=== PATIENT | male | born 1985 | race American Indian/Alaskan Native ===

== ENCOUNTER 2017-06-06 16:33 | Emergency (ER) | payer OTHER, SELFPAY ==
--- NOTE | 2017-06-06 23:52 | Emergency Department Report ---
ED General Adult HPI - General Chief complaint: Chest Pain Stated complaint: CHEST/BACK PAIN Time Seen by Provider: 06/06/17 23:35 Source: patient, family Mode of arrival: Ambulatory Limitations: No Limitations - History of Present Illness Initial comments: Patient reports chest pain. He said he possibly have left rib area that injured because a friend who is a massage therapist popped his back. This has been about 8-9 months ago and he still having pain he is having chest pain. Skin through his back. He said he was seen at [facility] last week for toothache and is prescribed an antibiotic. Pain to left chest. Since her left back is 8 out of 10 and aching. Pain is worse with movement and when he takes a deep breath. Denies any history of blood clots, denies any history of longest this travel for greater than 3 hours recently. Denies any nausea or vomiting. Denies any radiation of pain to his extremities or face. Over-the- counter medication taking without relief. Pain is intermittent. Neither any medical history. Denies any fever or chills. Denies any urinary burning, frequency or urgency. Denies any loss of bladder or bowel control. Denies any weakness to his extremities. MD Complaint: chest pain. Onset/Timin -: month(s) Location: chest, back Radiation: non-radiation Severity scale (0 -10): 8 Quality: aching Improves with: none Worsens with: none Associated Symptoms: chest pain, other (pain. Since her back). denies: confusion, cough, diaphoresis, fever/chills, headaches, loss of appetite, malaise, nausea/vomiting, rash, seizure, shortness of breath, syncope, weakness Treatments Prior to Arrival: NSAID - Related Data Previous Rx's Medication Instructions Recorded Last Taken Type Fluticasone Propionate [Flonase] 2 sprays NS QDAY #1 spray 07/10/13 Unknown Rx HYDROcodone/APAP 5-325 [[place] 1 each PO Q6HR PRN #20 tablet 07/10/13 Unknown Rx 5/325 mg] Loratadine [Claritin] 10 mg PO DAILY #30 tablet 07/10/13 Unknown Rx Sulfamethoxazole/Trimethoprim 1 each PO BID #20 tablet 07/10/13 Unknown Rx [Bactrim Ds] Ibuprofen [Motrin] 600 mg PO Q8H PRN #15 tablet 06/07/17 Unknown Rx Allergies Allergy/AdvReac Type Severity Reaction Status Date / Time peanut Allergy Swelling Verified 07/10/13 16:39 shellfish derived Allergy Swelling Verified 07/10/13 16:39 ED Review of Systems ROS: Stated complaint: CHEST/BACK PAIN Other details as noted in HPI Comment: All other systems reviewed and negative Constitutional: no symptoms reported Respiratory: no symptoms reported Cardiovascular: chest pain, other (pain with inspiration). denies: palpitations , dyspnea on exertion, edema, syncope, paroxysmal nocturnal dyspnea Gastrointestinal: denies: abdominal pain, nausea, vomiting, diarrhea, constipation Genitourinary: denies: dysuria, hematuria Musculoskeletal: back pain. denies: arthralgia, myalgia Skin: denies: rash Neurological: denies: headache, weakness, numbness, paresthesias, confusion, abnormal gait, vertigo ED Past Medical Hx - Past Medical History Previous Medical History?: No - Surgical History Past Surgical History?: No - Family History Family history: no significant - Social History Smoking Status: Current Every Day Smoker Substance Use Type: Prescribed - Medications Home Medications: Home Medications Medication Instructions Recorded Confirmed Last Taken Type Fluticasone Propionate [Flonase] 2 sprays NS QDAY #1 spray 07/10/13 Unknown Rx HYDROcodone/APAP 5-325 [[place] 1 each PO Q6HR PRN #20 tablet 07/10/13 Unknown Rx 5/325 mg] Loratadine [Claritin] 10 mg PO DAILY #30 tablet 07/10/13 Unknown Rx Sulfamethoxazole/Trimethoprim 1 each PO BID #20 tablet 07/10/13 Unknown Rx [Bactrim Ds] Ibuprofen [Motrin] 600 mg PO Q8H PRN #15 tablet 06/07/17 Unknown Rx ED Physical Exam - General Limitations: No Limitations General appearance: alert, in no apparent distress - Head Head exam: Present: atraumatic, normocephalic, normal inspection - Eye Eye exam: Present: normal appearance, PERRL, EOMI Pupils: Present: normal accommodation - ENT ENT exam: Present: normal exam, normal orophraynx, mucous membranes moist - Neck Neck exam: Present: normal inspection, full ROM, other (no C-spine tenderness). Absent: tenderness, lymphadenopathy - Respiratory Respiratory exam: Present: normal lung sounds bilaterally. Absent: respiratory distress, chest wall tenderness - Cardiovascular Cardiovascular Exam: Present: regular rate, normal rhythm, normal heart sounds. Absent: systolic murmur, diastolic murmur, S3, S4 - GI/Abdominal GI/Abdominal exam: Present: soft, normal bowel sounds. Absent: distended, tenderness, guarding, rebound, rigid - Extremities Exam Extremities exam: Present: normal inspection, full ROM, normal capillary refill , other (no clubbing, cyanosis or edema. +2 pulses all extremities). Absent: tenderness, pedal edema, joint swelling, calf tenderness - Back Exam Back exam: Present: normal inspection, full ROM, other (ambulates without any difficulties). Absent: tenderness, CVA tenderness (R), CVA tenderness (L), muscle spasm, paraspinal tenderness, vertebral tenderness, rash noted - Neurological Exam Neurological exam: Present: alert, oriented X3, normal gait, reflexes normal, other (no focal neurological deficit). Absent: motor sensory deficit - Psychiatric Psychiatric exam: Present: normal affect, normal mood - Skin Skin exam: Present: warm, dry, intact, normal color. Absent: rash ED Course Vital Signs 06/06/17 06/07/17 06/07/17 16:37 00:03 01:08 Temperature 98.6 F Pulse Rate 76 76 Respiratory 18 18 18 Rate Blood Pressure 139/78 Blood Pressure 142/88 [Left] O2 Sat by Pulse 98 99 Oximetry - Reevaluation(s) Reevaluation #1: 06/07/17 01:36 She given [place] 5/325 2 tablets by mouth for pain. He voiced relief of his pain ED Medical Decision Making - Lab Data D-dimer is Lab Results 06/07/17 06/07/17 Range/Units 00:31 00:31 D-Dimer < 135 (0-234) ng/mlDDU Troponin T < 0.010 (0.00-0.029) ng/mL - EKG Data -: EKG Interpreted by Me (attending physician) EKG shows normal: sinus rhythm Rate: normal (6 5 bpm) - EKG Data Interpretation: no acute changes - Radiology Data Radiology results: report reviewed Left rib x-ray revealed no acute findings Chest x-ray reveal no acute cardiopulmonary findings - Medical Decision Making ED course: He reports that he isn't having chest pain this patient through his upper back for 8-9 months. Reports that he felt that he was injured while getting a massage. Patient cardiac risk score is 0 and AUGUSTA score is 0. Perc Rule suggest no further studies needed as his score is no risks for DVT. Troponin is normal and d-dimer is normal. I discussed x-ray and lab results the patient and explained diagnosis and treatment plan. Patient was understanding. I discussed with him that if he continues to have chest pain he needs to follow-up with a lawn service worker for further testing. Patient does not have a primary care physician so I'll refer him to [facility]. Patient discharged home with prescription for Motrin Critical care attestation.: If time is entered above; I have spent that time in minutes in the direct care of this critically ill patient, excluding procedure time. ED Disposition Clinical Impression: Atypical chest pain Back pain Qualifiers: Back pain location: thoracic back pain Chronicity: chronic Back pain laterality : bilateral Qualified Code(s): M54.6 - Pain in thoracic spine; G89.29 - Other chronic pain Disposition: - TO HOME OR SELFCARE Is pt being admited?: No Does the pt Need Aspirin: No Condition: Stable Instructions: Chest Pain (ED), Back Pain (ED) Additional Instructions: Please follow up with lawn service worker regarding in chest pain that has been ongoing for 8-9 months. Take Motrin as prescribed for pain. He states this medication with food as it can cause irritation to stomach Prescriptions: Ibuprofen [Motrin] 600 mg PO Q8H PRN #15 tablet PRN Reason: Pain Referrals: [facility] [Outside] - 06/10/17 ABIGAIL MURPHY MD [Staff Physician] - 06/07/17 Forms: Work/School Release Form(ED), Accompanied Note
[2017-06-07 00:04] VITALS: BP 142/88
[2017-06-07] MEDS ORDERED: PERCOCET 5/325 PO ONE (00:21)
--- NOTE | 2017-06-07 01:03 | XRay Report ---
FINAL REPORT EXAM: XR CHEST ROUTINE 2V HISTORY: chest pain TECHNIQUE: 2 views of the chest. PRIORS: None. FINDINGS: The cardiomediastinal silhouette appears normal. The lungs are clear. The bones and soft tissues are unremarkable. IMPRESSION: No evidence of acute cardiopulmonary disease
--- NOTE | 2017-06-07 01:14 | XRay Report ---
FINAL REPORT EXAM: XR RIBS UNILAT 2V LT HISTORY: left rib pain after injury COMPARISON: None available. FINDINGS: Four total images of the left ribs obtained. Left ribs are grossly intact. No step-off deformity or discrete fracture line. Nondisplaced fracture may not be apparent by plain film. IMPRESSION: Left ribs are grossly intact.
== END 2017-06-07 01:48 | disposition home or self-care (01) ==
LOC: ED 16:33
DX: R07.89 Other chest pain (principal); M54.9 Dorsalgia, unspecified; F17.200 Nicotine dependence, unspecified, uncomplicated; Z91.010 Allergy to peanuts; Z91.013 Allergy to seafood
CPT/HCPCS: 36415; 71046; 84484; 85379; 93005; 93010; 99284

== ENCOUNTER 2018-12-25 06:56 | Emergency (ER) | payer SELFPAY ==
--- NOTE | 2018-12-25 08:26 | Emergency Department Report ---
ED ENT HPI - General Chief complaint: Earache Stated complaint: RT SIDE EAR PAIN Time Seen by Provider: 12/25/18 08:20 Source: patient Mode of arrival: Ambulatory Limitations: No Limitations - History of Present Illness Initial comments: 33-year-old -[place] male presents to the emergency room for right ear pain 1 week but getting worse. Patient states that the pain radiates down the right side of neck. Patient does admit to having a moist ear. Patient denies any swimming. Patient denies any fever chills or nausea no vomiting no headach e. Patient denies any past medical history has no known drug allergies and currently takes no medications on a daily basis. MD complaint: ear pain Onset/Timin -: week(s) Location: R ear Severity: moderate Severity scale (0 -10): 5 Quality: aching Consistency: constant Improves with: none Worsens with: none Associated Symptoms: denies: fever, cough, gum swelling, toothache, pain with swallowing, sore throat, tinnitus, hearing loss, discharge from ear, rhinorrhea - Related Data Previous Rx's Medication Instructions Recorded Last Taken Type Fluticasone Propionate [Flonase] 2 sprays NS QDAY #1 spray 07/10/13 Unknown Rx HYDROcodone/APAP 5-325 [[place] 1 each PO Q6HR PRN #20 tablet 07/10/13 Unknown Rx 5/325 mg] Loratadine [Claritin] 10 mg PO DAILY #30 tablet 07/10/13 Unknown Rx Sulfamethoxazole/Trimethoprim 1 each PO BID #20 tablet 07/10/13 Unknown Rx [Bactrim Ds] Ibuprofen [Motrin 600 MG tab] 600 mg PO Q8H PRN #15 tablet 12/25/18 Unknown Rx Neomy/Polymyx B/Hc (Otic) Soln 4 drops AD TID #1 bottle 12/25/18 Unknown Rx [Cortisporin (Otic) Soln] Allergies Allergy/AdvReac Type Severity Reaction Status Date / Time peanut Allergy Swelling Verified 07/10/13 16:39 shellfish derived Allergy Swelling Verified 07/10/13 16:39 ED Dental HPI - General Chief complaint: Earache Stated complaint: RT SIDE EAR PAIN Time Seen by Provider: 12/25/18 08:20 Source: patient Mode of arrival: Ambulatory Limitations: No Limitations - Related Data Previous Rx's Medication Instructions Recorded Last Taken Type Fluticasone Propionate [Flonase] 2 sprays NS QDAY #1 spray 07/10/13 Unknown Rx HYDROcodone/APAP 5-325 [[place] 1 each PO Q6HR PRN #20 tablet 07/10/13 Unknown Rx 5/325 mg] Loratadine [Claritin] 10 mg PO DAILY #30 tablet 07/10/13 Unknown Rx Sulfamethoxazole/Trimethoprim 1 each PO BID #20 tablet 07/10/13 Unknown Rx [Bactrim Ds] Ibuprofen [Motrin 600 MG tab] 600 mg PO Q8H PRN #15 tablet 12/25/18 Unknown Rx Neomy/Polymyx B/Hc (Otic) Soln 4 drops AD TID #1 bottle 12/25/18 Unknown Rx [Cortisporin (Otic) Soln] Allergies Allergy/AdvReac Type Severity Reaction Status Date / Time peanut Allergy Swelling Verified 07/10/13 16:39 shellfish derived Allergy Swelling Verified 07/10/13 16:39 ED Review of Systems ROS: Stated complaint: RT SIDE EAR PAIN Other details as noted in HPI Comment: All other systems reviewed and negative ED Past Medical Hx - Past Medical History Previous Medical History?: No - Surgical History Past Surgical History?: No - Social History Smoking Status: Current Every Day Smoker Substance Use Type: Marijuana - Medications Home Medications: Home Medications Medication Instructions Recorded Confirmed Last Taken Type Fluticasone Propionate [Flonase] 2 sprays NS QDAY #1 spray 07/10/13 Unknown Rx HYDROcodone/APAP 5-325 [[place] 1 each PO Q6HR PRN #20 tablet 07/10/13 Unknown Rx 5/325 mg] Loratadine [Claritin] 10 mg PO DAILY #30 tablet 07/10/13 Unknown Rx Sulfamethoxazole/Trimethoprim 1 each PO BID #20 tablet 07/10/13 Unknown Rx [Bactrim Ds] Ibuprofen [Motrin 600 MG tab] 600 mg PO Q8H PRN #15 tablet 12/25/18 Unknown Rx Neomy/Polymyx B/Hc (Otic) Soln 4 drops AD TID #1 bottle 12/25/18 Unknown Rx [Cortisporin (Otic) Soln] ED Physical Exam - General Limitations: No Limitations ED Medical Decision Making - Medical Decision Making 33-year-old -[place] male presents to the emergency room for right ear pain 1 week but getting worse. Patient states that the pain radiates down the right side of neck. Patient does admit to having a moist ear. Patient denies any swimming. Patient denies any fever chills or nausea no vomiting no headache. Patient denies any past medical history has no known drug allergies and currently takes no medications on a daily basis. Patient was placed on Polysporin eardrops Critical care attestation.: If time is entered above; I have spent that time in minutes in the direct care of this critically ill patient, excluding procedure time. ED Disposition Clinical Impression: Otitis externa Disposition: DC- TO HOME OR SELFCARE Is pt being admited?: No Does the pt Need Aspirin: No Condition: Stable Instructions: Otitis Externa (ED) Prescriptions: Neomy/Polymyx B/Hc (Otic) Soln [Cortisporin (Otic) Soln] 4 drops AD TID #1 bottle Ibuprofen [Motrin 600 MG tab] 600 mg PO Q8H PRN #15 tablet PRN Reason: Pain Referrals: JASMIN MARQUEZ MD [Primary Care Provider] - 3-5 Days Forms: Work/School Release Form(ED)
== END 2018-12-25 08:55 | disposition home or self-care (01) ==
LOC: ED 06:56
DX: H60.91 Unspecified otitis externa, right ear (principal); F17.200 Nicotine dependence, unspecified, uncomplicated; F12.10 Cannabis abuse, uncomplicated; Z91.010 Allergy to peanuts; Z91.013 Allergy to seafood; Z79.899 Other long term (current) drug therapy

== ENCOUNTER 2019-01-07 06:49 | Emergency (ER) | payer SELFPAY ==
[2019-01-07 07:26] LABS: Basophils % (Auto) 0.6 % (0.0-1.8); Eosinophils # (Auto) 0.4 K/mm3 (0.0-0.4); Eosinophils % (Auto) 5.1 % (0.0-4.3); Hematocrit 45.2 % (35.5-45.6); Hemoglobin 14.7 gm/dl (11.8-15.2); Lymphocytes # (Auto) 1.8 K/mm3 (1.2-5.4); Mean Corpuscular HGB Conc 32 % (32-34); Mean Corpuscular Volume 80 fl (84-94); Monocytes # (Auto) 0.7 K/mm3 (0.0-0.8); Monocytes % (Auto) 9.1 % (0.0-7.3); Platelet Count 259 K/mm3 (140-440); Red Blood Count 5.68 M/mm3 (3.65-5.03); Red Cell Distribution Width 15.9 % (13.2-15.2)
[2019-01-07 07:31] LABS: BUN/Creatinine Ratio 12; Blood Urea Nitrogen 11 mg/dL (9-20); Calcium 9.7 mg/dL (8.4-10.2); Hemolysis Index 12
--- NOTE | 2019-01-07 08:02 | Emergency Department Report ---
ED GI Bleed HPI - General Chief complaint: Abdominal Pain Stated complaint: BLOODY STOOL Time Seen by Provider: 01/07/19 07:43 Source: patient Mode of arrival: Ambulatory Limitations: No Limitations - History of Present Illness Initial comments: Patient is a 33-year-old male that presents emergency room with complaints of abdominal pain and bright red blood per rectum 10 days. Patient states his abdominal pain is intermittent. Patient states his abdominal pain is an 8 out of 10. Patient states it is worse with movement and better with rest. Patient states that he was seen at [facility] and was evaluated discharge. Patient states the symptoms have continued. Patient states that he's having gross bright red blood. Patient denies past medical history. Patient denies Crohn's disease. Patient denies chest pain shortness of breath. Patient denies fever and chills. Patient denies problems eating. Patient states from time to time he has nausea. MD complaint: gross hematochezia -: Sudden Location: LLQ, RLQ Radiation: none Severity scale (0 -10): 8 Quality: sharp Consistency: intermittent Improves with: rest Worsens with: movement Associated Symptoms: abdominal pain, nausea. denies: vomiting, epistaxis, fever/chills, headaches, loss of appetite, malaise, easy bruising, rash, other bleeding, shortness of breath, syncope, weakness - Related Data Previous Rx's Medication Instructions Recorded Last Taken Type Fluticasone Propionate [Flonase] 2 sprays NS QDAY #1 spray 07/10/13 Unknown Rx HYDROcodone/APAP 5-325 [[place] 1 each PO Q6HR PRN #20 tablet 07/10/13 Unknown Rx 5/325 mg] Loratadine [Claritin] 10 mg PO DAILY #30 tablet 07/10/13 Unknown Rx Sulfamethoxazole/Trimethoprim 1 each PO BID #20 tablet 07/10/13 Unknown Rx [Bactrim Ds] Ibuprofen [Motrin 600 MG tab] 600 mg PO Q8H PRN #15 tablet 12/25/18 Unknown Rx Neomy/Polymyx B/Hc (Otic) Soln 4 drops AD TID #1 bottle 12/25/18 Unknown Rx [Cortisporin (Otic) Soln] Docusate Sodium [Colace] 100 mg PO DAILY 20 Days #20 capsule 01/07/19 Unknown Rx Allergies Allergy/AdvReac Type Severity Reaction Status Date / Time peanut Allergy Swelling Verified 07/10/13 16:39 shellfish derived Allergy Swelling Verified 07/10/13 16:39 ED Review of Systems ROS: Stated complaint: BLOODY STOOL Other details as noted in HPI Constitutional: denies: chills, fever Eyes: denies: eye pain, eye discharge, vision change ENT: denies: ear pain, throat pain Respiratory: denies: cough, shortness of breath, wheezing Cardiovascular: denies: chest pain, palpitations Endocrine: no symptoms reported Gastrointestinal: abdominal pain, nausea, hematochezia. denies: vomiting, diarrhea, constipation, hematemesis, melena Genitourinary: denies: urgency, dysuria Musculoskeletal: denies: back pain, joint swelling, arthralgia Skin: denies: rash, lesions Neurological: denies: headache, weakness, paresthesias Psychiatric: denies: anxiety, depression Hematological/Lymphatic: denies: easy bleeding, easy bruising ED Past Medical Hx - Past Medical History Previous Medical History?: No - Surgical History Past Surgical History?: No - Family History Family history: no significant - Social History Smoking Status: Current Every Day Smoker Substance Use Type: None - Medications Home Medications: Home Medications Medication Instructions Recorded Confirmed Last Taken Type Fluticasone Propionate [Flonase] 2 sprays NS QDAY #1 spray 07/10/13 Unknown Rx HYDROcodone/APAP 5-325 [[place] 1 each PO Q6HR PRN #20 tablet 07/10/13 Unknown Rx 5/325 mg] Loratadine [Claritin] 10 mg PO DAILY #30 tablet 07/10/13 Unknown Rx Sulfamethoxazole/Trimethoprim 1 each PO BID #20 tablet 07/10/13 Unknown Rx [Bactrim Ds] Ibuprofen [Motrin 600 MG tab] 600 mg PO Q8H PRN #15 tablet 12/25/18 Unknown Rx Neomy/Polymyx B/Hc (Otic) Soln 4 drops AD TID #1 bottle 12/25/18 Unknown Rx [Cortisporin (Otic) Soln] Docusate Sodium [Colace] 100 mg PO DAILY 20 Days #20 capsule 01/07/19 Unknown Rx ED Physical Exam - General Limitations: No Limitations General appearance: alert, in no apparent distress - Head Head exam: Present: atraumatic, normocephalic - Eye Eye exam: Present: normal appearance - ENT ENT exam: Present: mucous membranes moist - Neck Neck exam: Present: normal inspection - Respiratory Respiratory exam: Present: normal lung sounds bilaterally. Absent: respiratory distress, wheezes - Cardiovascular Cardiovascular Exam: Present: regular rate, normal rhythm. Absent: systolic murmur, diastolic murmur, rubs, gallop - GI/Abdominal GI/Abdominal exam: Present: soft, tenderness (bilateral lower quadrant tenderness.), normal bowel sounds - Rectal Rectal exam: Present: normal inspection, normal rectal tone, heme (-) stool, normal prostate. Absent: black stool, bloody stool, fecal impaction - Extremities Exam Extremities exam: Present: normal inspection - Back Exam Back exam: Present: normal inspection - Neurological Exam Neurological exam: Present: alert, oriented X3 - Psychiatric Psychiatric exam: Present: normal affect, normal mood - Skin Skin exam: Present: warm, dry, intact, normal color. Absent: rash ED Course Vital Signs 01/07/19 01/07/19 06:55 08:06 Temperature 97.9 F Pulse Rate 85 74 Respiratory 18 16 Rate Blood Pressure 133/73 Blood Pressure 113/68 [Left] O2 Sat by Pulse 97 97 Oximetry - Reevaluation(s) Reevaluation #1: I discussed all results with patient. I discussed plan of care with patient. Patient agrees plan of care. Patient will be discharged home. Patient stable for discharge. Patient given discharge instructions. Patient voiced understanding of discharge instructions. 01/07/19 11:06 ED Medical Decision Making - Lab Data Result diagrams: 01/07/19 07:02 01/07/19 07:02 - Radiology Data CT ABDOMEN AND PELVIS WITH CONTRAST HISTORY: abd pain. Generalized abdominal pain for the past 2 days COMPARISON: None. TECHNIQUE: CT images of the abdomen and pelvis were obtained following administration of intravenous contrast. All CT scans at this location are performed using CT dose reduction for ALARA by means of automated exposure control. CONTRAST: 100 ml of intravenous contrast administered. FINDINGS: Lungs/bones: Lung bases are clear. There is no acute osseous abnormality or significant degenerative change. Abdomen/pelvis: There is mild hepatic steatosis and hepatomegaly. No focal liver lesion identified. The gallbladder, spleen, pancreas, adrenals, kidneys, and proximal GI tract appear unremarkable. Urinary bladder and prostate are unremarkable. No pelvic free fluid. No acute colonic abnormality identified. The appendix and terminal ileum appear normal. IMPRESSION: 1. No acute abnormality identified. 2. Hepatomegaly with steatosis. - Medical Decision Making Patient is a 33-year-old male that presents emergency room with bright red blood per rectum. Patient was seen a few days back at [facility] and was medically cleared. Per the patient, the patient's H&H is essentially the same results here as he got at [place]. Patient is stable. Patient discharged cassidy e. Patient had a CT scan of his abdomen due to having lower abdominal pain and tenderness. Patient's CT scan is negative. Prior to discharge patient states that his pain had resolved and he hasn't seen any blood in his bowel movement that he had here. - Differential Diagnosis abdominal pain. Bright red blood per rectum. Critical care attestation.: If time is entered above; I have spent that time in minutes in the direct care of this critically ill patient, excluding procedure time. ED Disposition Clinical Impression: PRB (rectal bleeding) Abdominal pain Qualifiers: Abdominal location: lower abdomen, unspecified Qualified Code(s): R10.30 - Lower abdominal pain, unspecified Disposition: DC-01 TO HOME OR SELFCARE Is pt being admited?: No Does the pt Need Aspirin: No Condition: Stable Instructions: Hemorrhoids (ED), Abdominal Pain (ED) Additional Instructions: Patient to follow-up with primary care in 2-3 days. Patient to follow-up with farm equipment assembler, GI in 2-3 days. Patient to return to ER condition worsens. Patient to rest. Patient increase water. Patient increase fiber intake. Patient to take Tylenol when necessary for pain. Patient to take meds as directed. Prescriptions: Docusate Sodium [Colace] 100 mg PO DAILY 20 Days #20 capsule Referrals: PRIMARY MD MARSHA [Primary Care Provider] - 2-3 Days TAMAR MONCADA MD [Staff Physician] - 2-3 Days Forms: Accompanied Note Time of Disposition: 11:17
--- NOTE | 2019-01-07 10:27 | Cat Scan Report ---
CT ABDOMEN AND PELVIS WITH CONTRAST HISTORY: abd pain. Generalized abdominal pain for the past 2 days COMPARISON: None. TECHNIQUE: CT images of the abdomen and pelvis were obtained following administration of intravenous contrast. All CT scans at this location are performed using CT dose reduction for ALARA by means of automated exposure control. CONTRAST: 100 ml of intravenous contrast administered. FINDINGS: Lungs/bones: Lung bases are clear. There is no acute osseous abnormality or significant degenerative change. Abdomen/pelvis: There is mild hepatic steatosis and hepatomegaly. No focal liver lesion identified. The gallbladder, spleen, pancreas, adrenals, kidneys, and proximal GI tract appear unremarkable. Urinary bladder and prostate are unremarkable. No pelvic free fluid. No acute colonic abnormality jeanette ntified. The appendix and terminal ileum appear normal. IMPRESSION: 1. No acute abnormality identified. 2. Hepatomegaly with steatosis. Signer Name: Miller Crawford MD Signed: 01/07/2019 10:23 AM Workstation Name: [id number]
[2019-01-07 11:40] VITALS: BP 112/72
== END 2019-01-07 11:36 | disposition home or self-care (01) ==
LOC: ED 06:49
DX: K62.5 Hemorrhage of anus and rectum (principal); F17.200 Nicotine dependence, unspecified, uncomplicated; Z79.899 Other long term (current) drug therapy; Z91.010 Allergy to peanuts; Z91.013 Allergy to seafood
CPT/HCPCS: 36415; 74177; 80048; 85025; 99284; Q9967